=== PATIENT | male | born 1960 | race American Indian/Alaskan Native ===

== ENCOUNTER 2021-01-14 08:17 | Outpatient (CLI) | payer BC ==
--- NOTE | 2021-01-14 11:32 | Ultrasound Report ---
ULTRASOUND ABDOMEN, COMPLETE INDICATION: ABDOMINAL PAIN. COMPARISON: No relevant prior imaging study available. FINDINGS: Pancreas: No significant abnormality. Abdominal Aorta: Normal size. IVC: No significant abnormality. Liver: The liver measures 13 cm in length. Small simple cyst in the left lobe measuring 1.2 cm. Norm al hepatopedal blood flow in the main portal vein. Gallbladder: No significant abnormality. Bile ducts: No significant abnormality. Common bile duct measures 4 mm. Kidneys: Right: 10.1 cm in length. No significant abnormality. Left: 10.5 cm in length. No signif icant abnormality. Spleen: No significant abnormality. Probable splenule noted. Free fluid: None. Additional Findings: None. IMPRESSION: 1. No acute sonographic abnormality of the abdomen. 2. Simple hepatic cyst. Signer Name: Mendez Hinson MD Signed: 01/14/2021 11:28 AM Workstation Name: [id number]
== END 2021-01-14 08:18 | disposition home or self-care (01) ==
LOC: US 08:17
PROVIDERS: ATTEND Nurse Practitioner
DX: K76.89 Other specified diseases of liver (principal)
CPT/HCPCS: 76700